=== PATIENT | female | born 1975 | race Caucasian/White ===

== ENCOUNTER → 2017-09-17 | Outpatient (CLI) | payer OTHER ==
[~2017-09-17] VITALS: Ht 165.1 cm; Wt 142.1 kg
[~2017-09-17] MED LIST: ADVA100A INH; ALBUAER3 INH; ARIP1TAB5 PO; CHLORHEXIDINE GLUCONATE 2 % 1 PACK (2 CLOTHS) TOPICAL PRN; INSULIN HUMAN REGULAR 1,000 UNITS/10 ML VIAL SQ PRN; LACTATED RINGER'S 1000 ML IV PRN; LAMI200T PO; LIDOCAINE HCL 1% PF 5 ML AMPULE OTHER ONE; METF500T PO; METOPROLOL TARTRATE 25 MG TAB PO PRN; MONT10TA2 PO; POVIDONE IODINE 5% (ANTISEPSIS KIT) 4 APPLICATIONS EACH NARE PRN; PROPOFOL 200 MG/20 ML AMP IV ONE; SODIUM CHLORID 0.9% 500 ML IV PRN; TRAZ100T6 PO; ZOLO100T PO
--- NOTE | 2017-09-17 10:59 | GIPROC ---
[facility] [address] [facility]. [facility] [place], [address] EGD PROCEDURE REPORT EXAM DATE: 09/17/2017 PATIENT NAME: Mirella Noe MR #: [id number] BIRTHDATE: 1975 ATTENDING: Eloy Hill MD ORDER #: [id number] HEAD MACHINE FEEDER: Haylie Keith and Oralia Matos STATUS: outpatient INDICATIONS: The patient is a 42 yr old female here for an EGD due to heartburn PROCEDURE PERFORMED: EGD w/ biopsy MEDICATIONS: Per Anesthesia and None. TOPICAL ANESTHETIC: none CONSENT: The patient understands the risks and benefits of the procedure and understands that these risks include, but are not limited to: sedation, allergic reaction, infection, perforation and/or bleeding. Alternative means of evaluation and treatment include, among others: physical exam, x-rays, and/or surgical intervention. The patient elects to proceed with this endoscopic procedure. medical equipment was checked for proper function. Hand hygiene and appropriate measures for infection prevention was taken. After the risks, benefits and alternatives of the procedure were thoroughly explained, Informed consent was verified, confirmed and timeout was successfully executed by the treatment team. The patient was anesthetized with anesthesia and the Pentax EG-[id number] endoscope was introduced through the mouth and advanced to the first portion of the duodenum. Biopsy of antrum for h pylori. Retroflexed views revealed a hiatal hernia The gastroscope was then slowly withdrawn and removed. Mild gastritis. ADVERSE EVENTS: There were no complications. IMPRESSIONS: 1. Mild gastritis 2. Retroflexed views revealed a hiatal hernia RECOMMENDATIONS: Continue PPI PATIENT CONDITION: fair DISPOSITION: Home REPEAT EXAM: NONE Eloy Hill MD eSigned: Eloy Hill MD 09/17/2017 10:58 AM cc:
[2017-09-17 11:25] VITALS: BP 124/73; PULSE 81; RESP 17; TEMP 81; O2SAT 94
== END ==
LOC: HEND 08:13
PROVIDERS: ATTEND Surgery
DX: Z01.818 Encounter for other preprocedural examination (principal); E66.01 Morbid (severe) obesity due to excess calories; Z68.43 Body mass index [BMI] 50.0-59.9, adult; K44.9 Diaphragmatic hernia without obstruction or gangrene; K29.70 Gastritis, unspecified, without bleeding; R06.02 Shortness of breath; G47.30 Sleep apnea, unspecified
CPT/HCPCS: 88305; 88312

== ENCOUNTER 2018-03-31 07:30 | Inpatient (IN) | payer OTHER ==
[~2018-03-31] VITALS: Ht 165.1 cm; Wt 135.0 kg
[~2018-03-31 07:30] MED LIST changes: +ABIL10TA8 PO; -ARIP1TAB5 PO; -CHLORHEXIDINE GLUCONATE 2 % 1 PACK (2 CLOTHS) TOPICAL PRN; -INSULIN HUMAN REGULAR 1,000 UNITS/10 ML VIAL SQ PRN; -LACTATED RINGER'S 1000 ML IV PRN; -LIDOCAINE HCL 1% PF 5 ML AMPULE OTHER ONE; -METOPROLOL TARTRATE 25 MG TAB PO PRN; -POVIDONE IODINE 5% (ANTISEPSIS KIT) 4 APPLICATIONS EACH NARE PRN; -PROPOFOL 200 MG/20 ML AMP IV ONE; -SODIUM CHLORID 0.9% 500 ML IV PRN; +TRAZ100T10 PO; -TRAZ100T6 PO
[2018-04-14] MEDS ORDERED: APREPITANT 40 MG CAP PO SCH (05:45)
[2018-04-14] MEDS ORDERED: METOPROLOL TARTRATE 25 MG TAB PO PRN (05:45)
[2018-04-14] MEDS ORDERED: ceFAZolin 2 GM PREMIX 50 ML IV SCH (05:45)
[2018-04-14] MEDS ORDERED: SCOPOLAMINE 1.5 MG PATCH T-DERMAL SCH (05:45)
[2018-04-14] MEDS ORDERED: ACETAMINOPHEN 1000 MG/100 ML 100 ML IV SCH (05:45)
[2018-04-14] MEDS ORDERED: SODIUM CHLORID 0.9% 500 ML IV PRN (05:45)
[2018-04-14] MEDS ORDERED: LACTATED RINGER'S 1000 ML IV PRN (05:45)
[2018-04-14] MEDS ORDERED: POVIDONE IODINE 5% (ANTISEPSIS KIT) 4 APPLICATIONS EACH NARE PRN (05:45)
[2018-04-14] MEDS ORDERED: CHLORHEXIDINE GLUCONATE 2 % 1 PACK (2 CLOTHS) TOPICAL PRN (05:45)
[2018-04-14] MEDS: ONDANSETRON HCL 4 MG/2 ML VIAL IV PUSH SCH (06:30)
--- NOTE | 2018-04-14 07:02 | RADRPT ---
EXAM DATE/TIME: 04/14/2018 06:37 [facility] COMPARISON: No previous studies available for comparison. INDICATIONS : Evaluate for pneumonia, pneumothorax, and or communicable disease. MEDICAL HISTORY : None. SURGICAL HISTORY : None. ENCOUNTER: Initial ACUITY: 1 day PAIN SCORE: 0/10 LOCATION: Bilateral chest FINDINGS: A single view of the chest demonstrates the lungs to be symmetrically aerated without evidence of mas s, infiltrate or effusion. There is a minimal platelike atelectasis versus scarring at left lung bas e. The cardiomediastinal contours are unremarkable. Osseous structures are intact. CONCLUSION: Minimal platelet atelectasis versus scarring in the left lung base. Otherwise, the lungs are grossly clear. Tc Gardiner MD on April 14, 2018 at 7:00 Board Certified Radiologist. This report was verified electronically.
[2018-04-14] MEDS ORDERED: DEXMEDETOMIDINE HCL 200 MCG/2 ML VIAL ONE (09:09)
[2018-04-14] MEDS ORDERED: LIDOCAINE HCL 2% 20 ML VIAL ONE ×2 (09:09→09:38)
[2018-04-14] MEDS ORDERED: KETAMINE HCL 50 MG/5 ML SYRINGE ONE (09:09)
--- NOTE | 2018-04-14 09:17 | HHI.PR ---
Immediate Post Op Note Procedure Date: April 14, 2018 Pre Op Diagnosis: bmi 51 brandon, mo, dm, gerd Post Op Diagnosis: same Surgeon: Eloy Hill MD Line Technician(s): See or sheet Procedure: lap rygb, large paraesophageal hernia repair Findings: no leak Complications: none Specimen(s) removed: none Estimated blood loss: 5cc Anesthesia: General Drains: None Patient to: PACU Patient Condition: Good Eloy Hill MD April 14, 2018 09:17
[2018-04-14] MEDS ORDERED: diphenhydrAMINE HCL 50 MG/ML VIAL IV PUSH PRN (09:30)
[2018-04-14] MEDS ORDERED: ACETAMINOPHEN 325MG/HYDROcodone 7.5MG/15ML UDC PO PRN (09:30)
[2018-04-14] MEDS ORDERED: ENALAPRILAT 1.25 MG/ML VIAL IV PUSH PRN (09:30)
[2018-04-14] MEDS: PANTOPRAZOLE SOD 40 MG DELAYED RELEASE TAB PO SCH (09:30)
[2018-04-14] MEDS ORDERED: ONDANSETRON ODT 4 MG TAB PO PRN (09:30)
[2018-04-14] MEDS ORDERED: Post-op Orders (for Pharmacy) OTHER ONE (09:30)
[2018-04-14] MEDS ORDERED: SODIUM CHLORIDE 0.9% FLUSH 10 ML FLUSH IV FLUSH PRN (09:30)
[2018-04-14] MEDS ORDERED: diphenhydrAMINE HCL ELIXIR 12.5 MG/5 ML CUP PO PRN (09:30)
[2018-04-14] MEDS ORDERED: ceFAZolin INJ 1,000 MG VIAL IV ONE (12:00)
[2018-04-14] MEDS ORDERED: ePHEDrine/NS 25 MG/5 ML SYRINGE IV ONE (12:00)
[2018-04-14] MEDS ORDERED: KETOROLAC TROMETHAMINE 30 MG/ML (IVP) VIAL IV PUSH ONE (12:00)
[2018-04-14] MEDS ORDERED: SUCCINYLCHOLINE CHLORIDE 100 MG/5 ML SYRINGE IV PUSH ONE (12:00)
[2018-04-14] MEDS ORDERED: VECURONIUM BROMIDE 20 MG VIAL IV ONE (12:00)
[2018-04-14] MEDS ORDERED: NEOSTIGMINE 5 MG/5 ML SYRINGE IV PUSH ONE (12:00)
[2018-04-14] MEDS ORDERED: ONDANSETRON HCL 4 MG/2 ML VIAL IV ONE (12:00)
[2018-04-14] MEDS ORDERED: LIDOCAINE HCL 1% PF 5 ML SYRINGE OTHER ONE (12:00)
[2018-04-14] MEDS ORDERED: DEXAMETHASONE SOD PHOS 4 MG/ML VIAL IV ONE (12:00)
[2018-04-14] MEDS ORDERED: GLYCOPYRROLATE 1 MG/5 ML SYRINGE IV PUSH ONE (12:00)
[2018-04-14] MEDS ORDERED: LACTATED RINGER'S 1000 ML INJ 1,000 ML IV ONE (12:00)
[2018-04-14] MEDS ORDERED: STERILE WATER FOR INJECTION 20 ML VIAL IV ONE (12:00)
[2018-04-14] MEDS ORDERED: PROPOFOL 200 MG/20 ML AMP IV ONE (12:00)
[2018-04-14] MEDS ORDERED: DO NOT ADM ANY ANTICOAGULANT DRUGS PRN (13:40)
[2018-04-14] MEDS ORDERED: MORPHINE SULFATE 30 MG/30 ML PCA ONE (13:53)
[2018-04-14] MEDS: D5-1/2 NS + KCL 20 MEQ INJ 1,000 ML IV SCH ×2 (14:00→16:41)
[2018-04-14] MEDS ORDERED: *RESP: ALBUTEROL 2.5 MG/3 ML NEB (PRN) PERIprocedural Use ONLY NEB ONE (14:11)
[2018-04-14] MEDS ORDERED: NALOXONE HCL 0.4 MG/ML AMP IV PUSH PRN (14:15)
[2018-04-14] MEDS: METOCLOPRAMIDE HCL 10 MG/2 ML VIAL IV PUSH SCH ×3 (14:30→21:22)
[2018-04-14] MEDS: ACETAMINOPHEN 1000 MG/100 ML 100 ML IV SCH ×2 (14:30→18:33)
[2018-04-14] MEDS: PCA - TOTAL MG MORPHINE DELIVERED PER SHIFT SCH ×2 (15:30→21:22)
[2018-04-14] MEDS: MORPHINE SULFATE 30 MG/30 ML PCA IV SCH (15:47)
[2018-04-14 16:00] VITALS: BP 120/69; PULSE 81; RESP 18; TEMP 98.3; O2SAT 93
[2018-04-14] MEDS: metroNIDAZOLE 500 MG INJ 100 ML IV SCH (16:47)
[2018-04-14] MEDS: ENOXAPARIN SODIUM 40 MG/0.4 ML SYRINGE SQ SCH (17:51)
[2018-04-14 20:00] VITALS: BP 101/61; PULSE 91; RESP 17; TEMP 97.7; O2SAT 92
[2018-04-14] MEDS: SODIUM CHLORIDE 0.9% FLUSH 10 ML FLUSH IV FLUSH SCH (21:00)
[2018-04-15] VITALS (7 sets, daily range): BP systolic 110–124; BP diastolic 59–82; PULSE 75–113; RESP 18–21; TEMP 97.1–98.2; O2SAT 92–98
[2018-04-15] MEDS: D5-1/2 NS + KCL 20 MEQ INJ 1,000 ML IV SCH ×3 (00:21→16:55)
[2018-04-15] MEDS: metroNIDAZOLE 500 MG INJ 100 ML IV SCH ×2 (00:22→07:44)
[2018-04-15] MEDS: ACETAMINOPHEN 1000 MG/100 ML 100 ML IV SCH ×2 (00:24→05:23)
[2018-04-15] MEDS: METOCLOPRAMIDE HCL 10 MG/2 ML VIAL IV PUSH SCH (05:23)
[2018-04-15] MEDS: PCA - TOTAL MG MORPHINE DELIVERED PER SHIFT SCH (05:26)
[2018-04-15] MEDS: ONDANSETRON HCL 4 MG/2 ML VIAL IV PUSH SCH (07:44)
[2018-04-15] MEDS: MORPHINE SULFATE 30 MG/30 ML PCA IV SCH (07:47)
[2018-04-15] MEDS: SODIUM CHLORIDE 0.9% FLUSH 10 ML FLUSH IV FLUSH SCH ×2 (07:48→21:06)
[2018-04-15] MEDS: PANTOPRAZOLE SOD 40 MG DELAYED RELEASE TAB PO SCH (07:48)
[2018-04-15 08:35] LABS: AUTOMATED NEUTROPHIL # 5.7 TH/MM3 (1.8-7.7); BASOPHIL % 0.5 % (0.0-2.0); EOSINOPHIL # 0.1 TH/MM3 (0-0.4); EOSINOPHIL % 0.7 % (0.0-4.0); HEMATOCRIT 41.5 % (35.0-46.0); HEMOGLOBIN 13.4 GM/DL (11.6-15.3); LYMPH % 23.7 % (9.0-44.0); LYMPHOCYTE # 2.1 TH/MM3 (1.0-4.8); MEAN CELL VOLUME 84.7 FL (80.0-100.0); MEAN CORPUSCULAR HEMOGLOBIN 27.4 PG (27.0-34.0); MEAN CORPUSCULAR HGB CONC 32.3 % (32.0-36.0); MEAN PLATELET VOLUME 8.3 FL (7.0-11.0); MONO % 10.2 % (0.0-8.0); MONOCYTE # 0.9 TH/MM3 (0-0.9); NEUT % 64.9 % (16.0-70.0); PLATELET COUNT 168 TH/MM3 (150-450); RED CELL DISTRIBUTION WIDTH 16.5 % (11.6-17.2); WHITE BLOOD COUNT 8.7 TH/MM3 (4.0-11.0)
[2018-04-15 08:58] LABS: BICARBONATE 23.4 MEQ/L (21.0-32.0); CALCIUM 8.4 MG/DL (8.5-10.1); CREATININE 0.73 MG/DL (0.50-1.00); MAGNESIUM 2.1 MG/DL (1.5-2.5)
[2018-04-15] MEDS ORDERED: ALBUTEROL SULFATE 90 MCG/ACT HFA 8 GM INHALER INH PRN (09:15)
[2018-04-15] MEDS: BUDESONIDE-FORMOTEROL 80/4.5 MCG INHALER INH SCH ×2 (09:15→21:06)
[2018-04-15] MEDS ORDERED: GLUCAGON 1 MG/ML VIAL OTHER PRN (09:15)
[2018-04-15] MEDS ORDERED: DEXTROSE 50% IN WATER 50 ML VIAL(D50) IV PUSH PRN (09:15)
[2018-04-15] MEDS ORDERED: DIATRIZOATE MEGLUM/DIATRIZOATE SOD 120 ML BTL (for RAD DIAG) PO ONE (09:25)
[2018-04-15] MEDS ORDERED: METOCLOPRAMIDE HCL 10 MG/2 ML VIAL IV PUSH PRN (09:30)
--- NOTE | 2018-04-15 09:39 | RADRPT ---
EXAM DATE/TIME: 04/15/2018 09:18 [facility] COMPARISON: No previous studies available for comparison. INDICATIONS : Post gastric bypass kaley-en-y surgery, check for leaks FLUORO TIME: 1.0 minutes IMAGE COUNT: 10 CONTRAST: 1. MD Persaud MEDICAL HISTORY : None. SURGICAL HISTORY : kaley-en-y ENCOUNTER: Initial ACUITY: 1 day PAIN SCORE: 2/10 LOCATION: Bilateral abdomen FINDINGS: Patient is status post Kaley-en-Y. Gastrografin was given. There is good flow of Gastrografin down the thoracic esophagus. There is flow into the gastric pouch. There is flow into the proximal small amy l. There is no evidence of leak or obstruction. There is some mild narrowing of the distal esophagus most likely from postsurgical edema. CONCLUSION: Unremarkable postoperative Gastrografin GI in this patient with a Kaley-en-Y. Tc Gardiner MD on April 15, 2018 at 9:34 Board Certified Radiologist. This report was verified electronically.
[2018-04-15] MEDS ORDERED: ARIPiprazole 10 MG TAB PO SCH (10:00)
[2018-04-15] MEDS: ARIPiprazole 5 MG TAB PO SCH (10:03)
[2018-04-15] MEDS: SERTRALINE HCL 100 MG TAB PO SCH (10:03)
[2018-04-15] MEDS: lamoTRIgine 100 MG TAB PO SCH ×2 (10:03→21:02)
--- NOTE | 2018-04-15 10:32 | HHI.PR ---
Subjective Subjective Notes Pain and nausea well controlled Objective Vitals/I&O Vital Signs Date Time Temp Pulse Resp B/P (MAP) Pulse Ox O2 Delivery O2 Flow Rate FiO2 04/15/18 08:30 92 21 04/15/18 07:47 18 04/15/18 04:25 97.6 75 124/74 (91) 04/14/18 15:00 Nasal Cannula 3 Labs Laboratory Tests Test 04/15/18 07:35 White Blood Count 8.7 Red Blood Count 4.90 Hemoglobin 13.4 Hematocrit 41.5 Mean Corpuscular Volume 84.7 Mean Corpuscular Hemoglobin 27.4 Mean Corpuscular Hemoglobin Concent 32.3 Red Cell Distribution Width 16.5 Platelet Count 168 Mean Platelet Volume 8.3 Neutrophils (%) (Auto) 64.9 Lymphocytes (%) (Auto) 23.7 Monocytes (%) (Auto) 10.2 Eosinophils (%) (Auto) 0.7 Basophils (%) (Auto) 0.5 Neutrophils # (Auto) 5.7 Lymphocytes # (Auto) 2.1 Monocytes # (Auto) 0.9 Eosinophils # (Auto) 0.1 Basophils # (Auto) 0.0 CBC Comment DIFF FINAL Differential Comment Blood Urea Nitrogen 7 Creatinine 0.73 Random Glucose 159 Calcium Level 8.4 Magnesium Level 2.1 Sodium Level 141 Potassium Level 3.9 Chloride Level 107 Carbon Dioxide Level 23.4 Anion Gap 11 Estimat Glomerular Filtration Rate 88 Cardiovascular: Regular Lungs: Wheezes Abdomen: Post-op tenderness Extremities: Perfused Wound Wound : Wound Location: Abdomen Appearance: Clean & Dry A/P Assessment and Plan 42yo F POD#1 laparoscopic RNY and repair of large paraesophageal hernia -UGI normal, ok to advance to clears per bariatric protocol -check bedside glucose ACHS -Restart home meds -Continue with frequent ambulation Discharge Planning home tomorrow Attending Statement Patient seen at bedside ugi normal no leak liquid diet ambulate pain control Attestation The exam, history, and the medical decision-making described in the above note were completed with the assistance of the mid-level provider. I reviewed and agree with the findings presented. I attest that I had a ycoo-ey-auxu encounter with the patient on the same day, and personally performed and documented my assessment and findings in the medical record. Rony Conklin April 15, 2018 10:32 Eloy Hill MD April 19, 2018 04:01
[2018-04-15] MEDS: ACETAMINOPHEN 325MG/HYDROcodone 7.5MG/15ML UDC PO PRN ×2 (13:32→21:02)
[2018-04-15] MEDS: RESP: ALBUTEROL 2.5 MG/IPRATROPIUM 0.5 MG NEB (SCH) NEB ×2 (16:49→21:57)
[2018-04-15] MEDS: ENOXAPARIN SODIUM 40 MG/0.4 ML SYRINGE SQ SCH (16:54)
[2018-04-15] MEDS ORDERED: ACETAMIN 325 MG/BUTALBITAL 50 MG/CAFFEINE 40 MG TAB PO ONE (17:45)
[2018-04-15] MEDS ORDERED: MONTELUKAST SODIUM 10 MG TAB PO SCH (21:00)
[2018-04-15] MEDS ORDERED: traZODone HCL 100 MG TAB PO SCH (21:00)
[2018-04-16 00:35] VITALS: BP 121/62; PULSE 78; RESP 15; TEMP 97.2; O2SAT 93
[2018-04-16] MEDS: D5-1/2 NS + KCL 20 MEQ INJ 1,000 ML IV SCH ×2 (02:49→09:45)
[2018-04-16] MEDS: ACETAMINOPHEN 325MG/HYDROcodone 7.5MG/15ML UDC PO PRN ×2 (02:50→09:48)
[2018-04-16] MEDS: RESP: ALBUTEROL 2.5 MG/IPRATROPIUM 0.5 MG NEB (SCH) NEB ×2 (03:18→09:55)
[2018-04-16 08:00] VITALS: BP 110/78; PULSE 79; RESP 20; TEMP 97.4; O2SAT 96
[2018-04-16] MEDS ORDERED: metFORMIN HCL 500 MG TAB PO SCH (09:00)
[2018-04-16] MEDS: SODIUM CHLORIDE 0.9% FLUSH 10 ML FLUSH IV FLUSH SCH (09:00)
--- NOTE | 2018-04-16 09:19 | MP ---
cc: Eloy Hill MD DATE OF OPERATION: 04/14/2018 PREOPERATIVE DIAGNOSIS: Morbid obesity, body mass index of 51, obstructive sleep apnea, diabetes, reflux, hiatal hernia. POSTOPERATIVE DIAGNOSIS: Morbid obesity, body mass index of 51, obstructive sleep apnea, diabetes, reflux, hiatal hernia, paraesophageal hernia with minimal adhesions. SURGEON: Dr. Eloy Hill. GERIATRIC NURSING ASSISTANT: Dr. Thurston. PROCEDURE PERFORMED: 1. Laparoscopic Kaley-en-Y gastric bypass with a 40 cm Kaley limb, 100 cm biliopancreatic limb. 2. Laparoscopic paraesophageal hernia repair. 3. Lysis of adhesions. ANESTHESIA: GETA. IV FLUIDS: See anesthesia sheet. ESTIMATED BLOOD LOSS: 5 mL. DRAINS: None. COMPLICATIONS: None. WOUND CLASSIFICATION: Clean, contaminated. FINDINGS: A very large paraesophageal hernia with stomach and large mesenteric fat incarcerated within the paraesophageal hernia. No leak on methylene blue. INDICATIONS: The patient is a 42-year-old female who presents with morbid obesity, BMI of 51, patient with obstructive sleep apnea, diabetes, reflux and hiatal hernia with a paraesophageal hernia as well. The patient with multiple attempts at weight loss without success. Therefore, a decision was made for bariatric surgery, gastric bypass and hiatal hernia repair. DETAILS OF PROCEDURE: The patient was taken to the operating suite, placed in supine position. She was prepped and draped in usual sterile fashion after induction of general endotracheal anesthesia. A brief time-out done stating correct patient, procedure and surgical site. We were all in agreement with this. Attention first directed to midline 18 cm from the xiphoid. Local anesthetic injected with Marcaine. This was done 18 cm from xiphoid. A 5 mm incision was made just off midline and to the left. A 5 mm Optiview was placed under direct visualization. Pneumoperitoneum induced to 15 mm. On cursory inspection, no evidence of injury. There were noted to be a couple of adhesions to the anterior abdominal wall. Several other trocars were placed including a right upper quadrant 5 mm liver retractor trocar, 12 mm lower quadrant port was placed, a 12 mm left lower quadrant port was placed, a 5 mm left lateral port was also placed. Prior to placement, local anesthetic injected at all port sites. Attention first directed to the adhesions to the anterior abdominal wall. These were taken down with a Harmonic scalpel. After this takedown, the patient remained supine and flat. The omentum was split at the transverse colon, going across the transverse colon up to the hepatic flexure to the splenic flexure. This was split in half in order to create a path for our Kaley limb. Next, the ligament of Treitz was identified and the bowel was walked 40 cm distal to this. The bowel was divided with the Endo GI stapler with a SEAMGUARD reinforced. Next, a clip was placed on the proximal limb. The distal limb was then further walked distally 100 cm. Enterotomies were made to create an antimesenteric border of the biliopancreatic and Kaley limbs and create a jejunojejunostomy. A linear Endo-SALOMÓN was used to create a through and through layer. This was done in a [id number]-[id number] stapling manner. Next, common enterotomies were grasped with [place] and another Endo-SALOMÓN stapler blue load was used to conjoin the enterotomy. Small clips were placed to control minimal bleeding at the staple line. Next, a 2-0 silk was used to the small redundant portion of the bowel singly suturing using a Lapra-Ty. Once this was done, the patient was placed in reverse Trendelenburg and left side up. A juan carlos flex retractor was placed and the left lobe of the liver was retracted. The angle of His was taken down bluntly with a Harmonic scalpel. There was noted to be very large omental fat along with a large hiatal hernia containing a significant amount of fat and partial stomach. The hiatal hernia/paraesophageal hernia was dissected out in a circumferential manner in order to identify both the right and left crura and skeletonize these structures to identify landmarks. The stomach and esophagus were reduced along with the large amount of omental fat that was contained in this hiatal hernia/paraesophageal hernia. A Joshua drain was used to assist in retraction and placed around the esophagus in order for more maneuverability. The esophagus was dissected up into the chest in order to allow the esophagus to rest without any tension in the GE junction in the abdomen. This was done bluntly and with the use of electric Bovie electrocautery. Once this was done, the posterior crura were reapproximated using a 0 silk suture in [id number] fashion. Next, we confirmed there was no NG tubes in the stomach and commencement of creation of the gastric pouch was done. The Harmonic scalpel was used to bluntly dissect at the lesser curvature along with the retractors in order to create a window posterior to the posterior stomach. Again, a large polyp was noted. A portion of this was fat and this was part of the fat that was contained in the large paraesophageal hernia and was removed with a Harmonic scalpel. Next, the Endo-SALOMÓN stapler blue load was used in a horizontal fashion in order to facilitate creation of the pouch and then 2 loads were fired vertically in order to complete the gastric pouch. Next, a gastrotomy was created using hook electro Bovie cautery. Next, an enterotomy was placed in the Kaley limb on the jejunal side. Endo-SALOMÓN stapler was used to staple and approximate the jejunal limb to the gastric pouch approximately 2.5 cm. Next, a 2-0 Polysorb was used in a running fashion to approximate the enterotomy, midway through the suture was cut. An 18-Georgian OG tube was advanced past the anastomosis. The defect was then closed with a second running 2-0 Polysorb endo suture. These were tied creating a single layer. Next, the anastomosis was tested with methylene blue of 60 mL x 2 without evidence of leaking. Following this, a second layer was done using a 2-0 Polysorb with a Lapra-Ty endo suture and reapproximated reinforcing the gastrojejunostomy in a 2 layer technique. Following this, the Evicel was then placed over the gastrojejunostomy and jejunostomy staple lines. Prior to this, actually a single 2-0 Polysorb suture was placed to assist in reapproximation of the posterior gastrojejunostomy for alleviation of any tension that may be on the gastrojejunostomy. A mrbbpq-gc-svtke suture placed posteriorly. Next, the defect was closed to prevent internal hernias. This was done with a 2-0 Surgidac suture with a Lapra-Ty. Following this, an Endo Catch bag was used to remove the portion of omental fat that was removed that was contained in the paraesophageal hernia. Following this, the 12 mm ports were closed using 0 Vicryl on a suture passer. Next, pneumoperitoneum was removed. All ports were removed. The OG tube was removed. Subcuticular sutures were used at all port sites with 4-0 Monocryl. Sterile dressings placed. The patient tolerated the procedure well. There was no intraoperative complications. All lap and instrument counts were correct at the end of the procedure. The patient was extubated and taken to the PACU. MD TANYA Jean/JOSAFAT , 08:30 AM , 09:17 AM
[2018-04-16] MEDS: lamoTRIgine 100 MG TAB PO SCH (09:45)
[2018-04-16] MEDS: SERTRALINE HCL 100 MG TAB PO SCH (09:45)
[2018-04-16] MEDS: ARIPiprazole 5 MG TAB PO SCH (09:45)
[2018-04-16] MEDS: PANTOPRAZOLE SOD 40 MG DELAYED RELEASE TAB PO SCH (09:45)
[2018-04-16 09:57] VITALS: O2SAT 94
[2018-04-16] MEDS: BUDESONIDE-FORMOTEROL 80/4.5 MCG INHALER INH SCH (10:12)
--- NOTE | 2018-04-16 11:43 | HHI.PR ---
Subjective Subjective Notes Tolerating PO No GI complaints Objective Vitals/I&O Vital Signs Date Time Temp Pulse Resp B/P (MAP) Pulse Ox O2 Delivery O2 Flow Rate FiO2 04/16/18 09:57 94 21 04/16/18 08:00 97.4 79 20 110/78 (89) 04/15/18 16:49 Nasal Cannula 3.00 Abdomen: Post-op tenderness Extremities: Perfused Wound Wound : Wound Location: Abdomen Appearance: Clean & Dry A/P Assessment and Plan 42yo F POD# 2 laparoscopic RNY and repair of large paraesophageal hernia -Continue with frequent ambulation -Continue to increase fluids as tolerated doing much better Discharge Planning home today Attending Statement patient seen at bedside no issues wants to d/c home swallowing better Attestation The exam, history, and the medical decision-making described in the above note were completed with the assistance of the mid-level provider. I reviewed and agree with the findings presented. I attest that I had a [id number]-[id number] encounter with the patient on the same day, and personally performed and documented my assessment and findings in the medical record. Rony Conklin April 16, 2018 11:43 Eloy Hill MD April 19, 2018 04:35
== END 2018-04-16 12:47 | disposition home or self-care (01) | DRG 327 ==
LOC: HSDI 04-14 05:19 → N07B 04-14 15:04
PROVIDERS: ADMIT Surgery; ATTEND Surgery
PROC: 0D164ZA Bypass Stomach to Jejunum, Percutaneous Endoscopic Approach (ICD-10-PCS; 2018-04-14)
PROC: 0BQT4ZZ Repair Diaphragm, Percutaneous Endoscopic Approach (ICD-10-PCS; principal; 2018-04-14 09:10)
DX: K44.9 Diaphragmatic hernia without obstruction or gangrene (principal); Z68.43 Body mass index [BMI] 50.0-59.9, adult; E66.01 Morbid (severe) obesity due to excess calories; E11.9 Type 2 diabetes mellitus without complications; K21.9 Gastro-esophageal reflux disease without esophagitis; G47.33 Obstructive sleep apnea (adult) (pediatric)
CPT/HCPCS: 71045; 74241; 80048; 82948; 83735; 85025; 94150; 94640; 94664; J0131; J0330; J0690; J1100; J1650; J1885; J2270; J2405; J2710; J2765; J3010; J3480; J7120; J7613; J8501; Q9963